=== PATIENT | male | born 1980 | race Caucasian/White ===

== ENCOUNTER 2025-01-09 22:08 | Emergency (ER) | payer BC, SELFPAY ==
[2025-01-09 22:12] VITALS: PULSE 87; TEMP 37.3; O2SAT 98; BMI 44.9
--- NOTE | 2025-01-09 22:35 | ED_ITS ---
HPI - Dental/Oral General Chief complaint: Dental/Oral Stated complaint: DENTAL ISSUE Time Seen by Provider: 01/09/25 22:19 Source: patient Mode of arrival: ambulance History of Present Illness HPI Narrative: dental pain past week. prescribed amoxicillin 250 tid by his dentist and it is not helping. increasing pain and mild swelling of his face. Pain interfering with sleep. No fever Related Data Home Medications ?Medication ?Instructions ?Recorded ?Confirmed duloxetine 60 mg capsule,delayed 60 mg PO DAILY 01/09/25 release Allergies Allergy/AdvReac Type Severity Reaction Status Date / Time No Known Drug Allergies Allergy Verified 01/09/25 22:21 Review of Systems 2 ROS0 Status of ROS 10 or more systems reviewed and unremark able except as noted in history and below PFSH PFSH Social History Little interest or pleasure in doing things: not at all Feeling down, depressed, or hopeless: not at all Exam Constitutional Vital Signs, click to edit/add: Last Vital Signs Temp 99.1 F 01/09/25 22:12 Pulse 87 01/09/25 22:12 Resp 18 01/09/25 22:12 Pulse Ox 98 01/09/25 22:12 O2 Del Method Room Air 01/09/25 22:12 Common normals: average body habitus, oriented x3, no limitations, healthy appearing, alert and well nourished General appearance: in distress HENSC Common normals: normocephalic and head/scalp atraumatic Face and sinus images: 2 1. mild facial swelling Eye Common normals: PERRL and EOMs intact bilaterally Respiratory Common normals: normal respiratory effort, no retractions, no use of accessory muscles and clear to auscultation bilaterally Cardio Common normals: regular rate, regular rhythm and S1 normal heart sound Extremity Common normals: normal to inspection and full ROM Neuro Common normals: oriented x3, CN's II-XII intact bilaterally, moves all extremities, no focal motor deficits and no sensory deficits noted Psych Appearance: grossly normal Course Vital Signs Vital signs: Vital Signs Temperature 99.1 F 01/09/25 22:12 Pulse Rate 87 01/09/25 22:12 Respiratory Rate 18 01/09/25 22:12 Pulse Oximetry 98 01/09/25 22:12 Oxygen Delivery Method Room Air 01/09/25 22:12 Temperature 99.1 F 01/09/25 22:12 Pulse Rate 87 01/09/25 22:12 Respiratory Rate 18 01/09/25 22:12 Pulse Oximetry 98 01/09/25 22:12 Oxygen Delivery Method Room Air 01/09/25 22:12 MDM - Dental/Oral MDM Narrative Medical decision making narrative: patient presents with left upper premolar abscess with associated mild facial swelling and moderate pain. Was on Amoxicillin 250 tid for past week. Treated in the department with clindamycin, Toradol and solumedrol and is now feeling better. Discharged home with a prescription for clindamycin 300 qid 10d Lab Data Labs: Lab Results 01/09/25 Range/Units 22:52 WBC 12.2 H (4.0-11.0) 10^3/uL RBC 4.89 (4.70-6.10) 10^6/uL Hgb 14.5 (14.0-18.0) g/dL Hct 42.1 (42.0-54.0) % MCV 86.1 (80.0-94.0) fL MCH 29.7 (25.9-34.0) pg MCHC 34.4 (29.9-35.2) g/dL RDW 12.7 (11.0-15.0) % Plt Count 215 (150-450) 10^3/uL MPV 11.2 (9.5-13.5) fL Neut % (Auto) 57.7 (43.0-75.0) % Lymph % (Auto) 29.8 (20.5-60.0) % [place] % (Auto) 7.6 (1.7-12.0) % Eos % (Auto) 3.7 (0.9-7.0) % Baso % (Auto) 0.7 (0.2-2.0) % Neut # (Auto) 7.0 H (1.4-6.5) 10^3/uL Lymph # (Auto) 3.6 (1.2-3.8) 10^3/uL [place] # (Auto) 0.9 H (0.3-0.8) 10^3/uL Eos # (Auto) 0.5 (0.0-0.7) 10^3/uL Baso # (Auto) 0.1 (0.0-0.1) 10^3/uL Abs Immat Gran (auto) 0.06 H (0.00-0.03) 10^3/uL Imm/Tot Granulo (auto) 0.5 (0.0-0.5) % Sodium 138 (136-145) mmol/L Potassium 4.2 (3.5-5.1) mmol/L Chloride 103 (98-107) mmol/L Carbon Dioxide 28.3 (21.0-32.0) mmol/L Anion Gap 10.9 BUN 12.0 (7.0-18.0) mg/dL Creatinine 0.76 (0.70-1.30) mg/dL Est GFR ( Amer) >60 (>=60 mL/min/1.73m^2) Est GFR (Non-Af Amer) >60 (>=60 mL/min/1.73m^2) BUN/Creatinine Ratio 15.8 Glucose 204 H (74-106) mg/dL Calcium 8.9 (8.5-10.1) mg/dL C-Reactive Protein 1.73 H (<=0.50) mg/dL Discharge Plan Discharge Chief Complaint: Dental/Oral Clinical Impression: Dental abscess Patient Disposition: Home, Self-Care Prescriptions / Home Meds: No Action duloxetine 60 mg capsule,delayed release(DR/EC) 60 mg PO DAILY Print Language: Guyanese Instructions: Dental Abscess (ED) Additional Instructions: discontinue amoxicillin. Follow up with your dentist next week Referrals: Physician,Non-Staff, MD [Primary Care Provider] - 1 week
[2025-01-09] MEDS: KETOROLAC TROMETHAMINE 30 MG/ML VIAL IVP (22:53)
[2025-01-09] MEDS: METHYLPREDNISOLONE SOD SUCC PF 125 MG/2 ML VIAL IVP (22:53)
[2025-01-09] MEDS: CLINDAMYCIN PHOSPHATE/D5W 900 MG/50 ML PREMIX 100 MG IV (22:54)
[2025-01-09 23:21] LABS: Hematocrit 42.1 % (42.0-54.0); Hemoglobin 14.5 g/dL (14.0-18.0); Immature Granulocytes Abs Auto 0.06 10^3/uL (0.00-0.03); Immature Granulocytes Pct Auto 0.5 % (0.0-0.5); Lymphocytes Absolute Auto 3.6 10^3/uL (1.2-3.8); Mean Corpuscular HGB Conc 34.4 g/dL (29.9-35.2); Mean Corpuscular Hemoglobin 29.7 pg (25.9-34.0); Mean Corpuscular Volume 86.1 fL (80.0-94.0); Platelet Count 215 10^3/uL (150-450); Red Blood Count 4.89 10^6/uL (4.70-6.10); White Blood Count 12.2 10^3/uL (4.0-11.0)
[2025-01-09 23:33] LABS: Anion Gap 10.9; Blood Urea Nitrogen 12.0 mg/dL (7.0-18.0); Calcium 8.9 mg/dL (8.5-10.1); Carbon Dioxide 28.3 mmol/L (21.0-32.0); Chloride 103 mmol/L (98-107); Estimated GFR (African America >60 (>=60 mL/min/1.73m^2); Estimated GFR (Non-African Ame >60 (>=60 mL/min/1.73m^2); Glucose 204 mg/dL (74-106); Potassium 4.2 mmol/L (3.5-5.1); Sodium 138 mmol/L (136-145)
[2025-01-10 00:09] VITALS: BP 140/78
== END 2025-01-10 00:10 | disposition home or self-care (01) ==
PROVIDERS: Emergency Provider Internal Medicine
DX: K04.7 Periapical abscess without sinus (principal)
CPT/HCPCS: 36415; 80048; 85025; 86140; 96365; 96375; 99284; J0736; J1885; J2919